=== PATIENT | female | born 1970 | race American Indian/Alaskan Native ===

== ENCOUNTER 2016-06-06 19:50 | Emergency (ER) | payer SELFPAY ==
--- NOTE | 2016-06-06 20:16 | Emergency Department Report ---
Chief Complaint: High BP Stated Complaint: HBP/DIZZINESS Time Seen by Provider: 06/06/16 20:11 - HPI History of Present Illness: PT states 2 years ago she was told that her bp was high at . PT states she was given RX of a water pill for one month. PT states today she checked her bp at 1600 because she was nauseated and having headache. no improvement after Tylenol. PT states she is going to a diet clinic and she is taking RX diet pills. - ROS Review of Systems: -sob -cp + dizziness - Exam Vital Signs: Vital Signs 06/06/16 20:03 Temperature 98.1 F Pulse Rate 75 Respiratory 20 Rate Blood Pressure 212/112 [Right] O2 Sat by Pulse 100 Oximetry Physical Exam: PT looks well, non toxic gcs 15, steady gait rrr, lungs cta MSE screening note: Focused history and physical exam performed. Due to findings the following was ordered: labs, ekg, ct ED Disposition for MSE Condition: Stable
[2016-06-06 21:16] LABS: Basophils % (Auto) 1.3 % (0.0-1.8); Eosinophils % (Auto) 2.3 % (0.0-4.3); Hematocrit 38.6 % (30.3-42.9); Hemoglobin 12.7 gm/dl (10.1-14.3); Mean Corpuscular HGB Conc 33 % (30-34); Mean Corpuscular Hemoglobin 28 pg (28-32); Mean Corpuscular Volume 86 fl (79-97); Platelet Count 215 K/mm3 (140-440); Red Blood Count 4.49 M/mm3 (3.65-5.03); Red Cell Distribution Width 14.7 % (13.2-15.2); White Blood Count 6.8 K/mm3 (4.5-11.0)
[2016-06-06 21:26] LABS: INR 0.96 (0.87-1.13); Partial Thromboplastin Time 27.7 Sec. (24.2-36.6)
[2016-06-06 21:35] LABS: Anion Gap 17 mmol/L; Blood Urea Nitrogen 14 mg/dL (7-17); Calcium 8.7 mg/dL (8.4-10.2); Carbon Dioxide 24 mmol/L (22-30); Chloride 97.5 mmol/L (98-107); Glucose 87 mg/dL (65-100); Potassium 3.7 mmol/L (3.6-5.0); Sodium 135 mmol/L (137-145)
--- NOTE | 2016-06-06 22:05 | Cat Scan Report ---
FINAL REPORT PROCEDURE: CT HEAD/BRAIN WO CON TECHNIQUE: Computerized tomography of the head was performed without contrast material. HISTORY: neuro deficits \T\lt; 6hrs or sx present upon awakening COMPARISON: No prior studies are available for comparison. FINDINGS: Skull and scalp: Normal. Paranasal sinuses: Normal. Ventricles and subarachnoid spaces: Normal. Cerebrum: No evidence of hemorrhage, acute infarction or mass . Cerebellum and brainstem: No evidence of hemorrhage, acute infarction or mass. Vasculature: Normal. Comments: None. IMPRESSION: No acute intracranial abnormality
[2016-06-06] MEDS ORDERED: APRESOLINE IV ONE (23:51)
[2016-06-06] MEDS ORDERED: NORMODYNE IV ONE (23:51)
[2016-06-07] MEDS ORDERED: NACL 0.9% 500 ML 500 ML IV ONE (02:00)
[2016-06-07] MEDS ORDERED: REGLAN IV ONE (02:01)
[2016-06-07] MEDS ORDERED: BENADRYL IV ONE (02:01)
[2016-06-07] MEDS ORDERED: TORADOL IV ONE (02:01)
--- NOTE | 2016-06-07 02:03 | Emergency Department Report ---
HPI - General Chief Complaint: High BP Time Seen by Provider: 06/06/16 20:11 - HPI HPI: The patient is a 46-year-old female presents for evaluation of headache. The patient reports headache since 8 AM earlier today, greater than 12 hours prior to my evaluation. She states that her headache has been constant since onset, 10/10 in severity, throbbing in quality, exacerbated with bright lights or movement of the head, and associated with moderate in severity lightheadedness, also elicited with head position changes or physical activity. The patient denies fever, head injury, neck pain, neck stiffness, vision or hearing changes , smell or taste changes, paresthesias, facial drooping, slurred speech, seizure -like activity, urine or bowel incontinence or retention, or other focal neurological deficit. ED Past Medical Hx - Past Medical History Previous Medical History?: No - Surgical History Past Surgical History?: No - Social History Smoking Status: Current Every Day Smoker Substance Use Type: None - Medications Home Medications: Home Medications Medication Instructions Recorded Confirmed Last Taken Type Ondansetron [Zofran TAB] 4 mg PO Q8HR PRN #15 tablet 06/07/16 Unknown Rx amLODIPine [Norvasc] 5 mg PO DAILY #31 tab 06/07/16 Unknown Rx traMADol [Ultram 50 MG tab] 50 mg PO Q6HR PRN #12 tablet 06/07/16 Unknown Rx ED Review of Systems ROS: Stated complaint: HBP/DIZZINESS Other details as noted in HPI Constitutional: denies: fever; reports lightheadedness ENT: denies: throat or neck pain Respiratory: denies: cough, shortness of breath Cardiovascular: denies: chest pain Endocrine: denies unexplained weight loss or gain Gastrointestinal: denies: abdominal pain reports nausea Genitourinary: denies: dysuria Musculoskeletal: denies: leg swelling Skin: denies: rash Neurological: reports headache Hematological/Lymphatic: denies: easy bleeding or easy bruising Psych: denies sadness or hopelessness Physical Exam - Physical Exam Vital Signs: Vital Signs 06/06/16 06/07/16 06/07/16 20:03 00:31 00:36 Temperature 98.1 F Pulse Rate 75 64 67 Respiratory 20 16 16 Rate Blood Pressure 167/85 Blood Pressure 212/112 [Right] O2 Sat by Pulse 100 98 Oximetry 06/07/16 06/07/16 00:40 00:48 Temperature Pulse Rate 64 Respiratory 16 Rate Blood Pressure 167/85 167/85 Blood Pressure [Right] O2 Sat by Pulse 97 Oximetry Physical Exam: General: well-nourished, well-developed, no acute distress Head: Normocephalic, atraumatic Eyes: normal sclera, EOMI, PERRL, no nystagmus ENT: Mucous membranes are pale and dry Neck: No neck stiffness, no cervical adenopathy Respiratory: Breath sounds equal bilaterally, no wheezing, rales, or rhonchi Cardio: S1 and S2 present, no murmurs, rubs, gallops, capillary refill is delayed Abdomen: Normoactive bowel sounds, soft abdomen, no tenderness Musc: No pitting edema Skin: No rash Neuro: Alert oriented 3, normal cognition, no facial drooping, normal speech, CN 2 through 12 grossly intact, no gross sensation or motor deficits in arms or legs, reflexes 2+ symmetric on DTR testing, Babinski upgoing, no obvious gross neuro deficits on exam Psych: Normal affect ED Course Vital Signs 06/06/16 06/07/16 06/07/16 20:03 00:31 00:36 Temperature 98.1 F Pulse Rate 75 64 67 Respiratory 20 16 16 Rate Blood Pressure 167/85 Blood Pressure 212/112 [Right] O2 Sat by Pulse 100 98 Oximetry 06/07/16 06/07/16 00:40 00:48 Temperature Pulse Rate 64 Respiratory 16 Rate Blood Pressure 167/85 167/85 Blood Pressure [Right] O2 Sat by Pulse 97 Oximetry ED Medical Decision Making - Lab Data Result diagrams: 06/06/16 21:03 06/06/16 21:03 - Medical Decision Making The patient was seen and examined by myself. The patient is placed on a pvc monitor and continuous pulse ox. On initial evaluation, the patient was found to be in no distress. IV access is established and the patient is given normal saline fluid bolus for treatment of dehydration, IV Reglan, Benadryl, and IV Toradol for headache. Lab results are unremarkable, including negative test. The patient was reevaluated and reported that their symptoms were markedly improved. The patient is stable for discharge with outpatient follow-up. The patient is given follow-up and return instructions. The patient expressed understanding and agreed with the plan. The patient is discharged in stable condition. Critical care attestation.: If time is entered above; I have spent that time in minutes in the direct care of this critically ill patient, excluding procedure time. ED Disposition Clinical Impression: Hypertensive urgency, Dehydration, Orthostatic lightheadedness Acute nonintractable headache Qualifiers: Headache type: unspecified Qualified Code(s): R51 - Headache Disposition: DISCHARGED TO HOME OR SELFCARE Is pt being admited?: No Does the pt Need Aspirin: No Condition: Stable Instructions: Migraine Headache (ED), Acute Headache (ED), Hypertension (ED) Prescriptions: amLODIPine [Norvasc] 5 mg PO DAILY #31 tab Ondansetron [Zofran TAB] 4 mg PO Q8HR PRN #15 tablet PRN Reason: Nausea traMADol [Ultram 50 MG tab] 50 mg PO Q6HR PRN #12 tablet PRN Reason: Pain Referrals: PRIMARY CARE, [Primary Care Provider] - 3-5 Days Time of Disposition: 02:03
[2016-06-07 03:14] VITALS: BP 139/74
== END 2016-06-07 03:15 | disposition home or self-care (01) ==
LOC: ED 19:50
DX: I10 Essential (primary) hypertension (principal); E86.0 Dehydration; R42 Dizziness and giddiness; F17.200 Nicotine dependence, unspecified, uncomplicated
CPT/HCPCS: 36415; 70450; 80048; 82962; 84484; 84703; 85025; 85610; 85670; 85730; 93005; 93010; 96361; 96374; 96375; 99285; J1200; J1885; J2765; J7040

== ENCOUNTER 2016-06-09 09:32 | Emergency (ER) | payer SELFPAY ==
[2016-06-09] MEDS ORDERED: ULTRAM PO ONE (13:29)
--- NOTE | 2016-06-09 13:44 | XRay Report ---
ROUTINE CHEST, TWO VIEWS: HISTORY: chest pain. The trachea, heart, mediastinal contour, lung landon and bony thorax are unremarkable. IMPRESSION: Unremarkable chest x-ray.
[2016-06-09 13:54] LABS: Bilirubin,Urine NEG (Negative); Blood,Urine NEG (Negative); Ketones,Urine NEG (Negative); Leukocyte Esterase,Urine NEG (Negative); Mucus,Urine FEW /HPF; Nitrite,Urine NEG (Negative); Protein,Urine <15 mg/dL mg/dL (Negative)
[2016-06-09 14:18] LABS: Basophils % (Auto) 0.7 % (0.0-1.8); Eosinophils % (Auto) 2.8 % (0.0-4.3); Hematocrit 39.1 % (30.3-42.9); Mean Corpuscular HGB Conc 33 % (30-34); Mean Corpuscular Hemoglobin 28 pg (28-32); Mean Corpuscular Volume 86 fl (79-97); Platelet Count 244 K/mm3 (140-440); Red Blood Count 4.56 M/mm3 (3.65-5.03); Red Cell Distribution Width 14.8 % (13.2-15.2)
[2016-06-09 16:00] LABS: Creatine Kinase MB 1.3 ng/mL (0.0-4.0)
[2016-06-09 16:02] LABS: Anion Gap 18 mmol/L; Blood Urea Nitrogen 13 mg/dL (7-17); Calcium 9.5 mg/dL (8.4-10.2); Carbon Dioxide 26 mmol/L (22-30); Chloride 95.9 mmol/L (98-107); Creatine Kinase 77 units/L (30-135); Glucose 108 mg/dL (65-100); Potassium 3.6 mmol/L (3.6-5.0); Sodium 136 mmol/L (137-145)
--- NOTE | 2016-06-09 16:19 | Emergency Department Report ---
Upper Extremity - HPI Chief Complaint: Back Pain/Injury Stated Complaint: PAIN AND NUMBNESS ARM NECK AND BACK Time Seen by Provider: 06/09/16 13:20 Upper Extremity: Left Shoulder Occurred When: >5 Days Severity: moderate Symptoms: Yes Pain with Movement, No Deformity, No Limited Range of Movement, No Numbness, No Weakness, No Swelling, No Bruising/Ecchymosis, No Laceration or Abrasion Other History: 46-year-old female past medical history antiphospholipid syndrome , migraines, hypertension presents with complaint of left-sided shoulder pain radiating down from neck. Complaint of minor tingling in arms associated with episodes of pain worse when she moves her left shoulder. Denies any fever or chills no direct trauma. Denies any current headache no nausea no vomiting no photophobia and no phonophobia. No neck rigidity. States that she has been experiencing this pain for years. Pain is worse when she shrugs her shoulder. Patient does not currently have a primary medical doctor. States she was in the ED 4 days ago for migraine headache which has since resolved but today she was at work and lifted a box and felt pain in her left shoulder. ED Review of Systems ROS: Stated complaint: PAIN AND NUMBNESS ARM NECK AND BACK Other details as noted in HPI Constitutional: denies: chills, fever Eyes: denies: eye pain, eye discharge, vision change ENT: denies: ear pain, throat pain Respiratory: denies: cough, shortness of breath, wheezing Cardiovascular: denies: chest pain, palpitations Endocrine: no symptoms reported Gastrointestinal: denies: abdominal pain, nausea, diarrhea Genitourinary: denies: urgency, dysuria, discharge Musculoskeletal: other (left shoulder pain). denies: back pain, joint swelling , arthralgia Skin: denies: rash, lesions Neurological: headache. denies: weakness, paresthesias Psychiatric: denies: anxiety, depression Hematological/Lymphatic: denies: easy bleeding, easy bruising ED Past Medical Hx - Past Medical History Hx Hypertension: Yes Additional medical history: ANTIPHOSPHO LIPID SYNDROME - Surgical History Additional Surgical History: D & C - Social History Smoking Status: Current Some Day Smoker Substance Use Type: None - Medications Home Medications: Home Medications Medication Instructions Recorded Confirmed Last Taken Type Ondansetron [Zofran TAB] 4 mg PO Q8HR PRN #15 tablet 06/07/16 Unknown Rx amLODIPine [Norvasc] 5 mg PO DAILY #31 tab 06/07/16 Unknown Rx traMADol [Ultram 50 MG tab] 50 mg PO Q6HR PRN #12 tablet 06/07/16 Unknown Rx Lisinopril [Zestril TAB] 10 mg PO QDAY #14 tablet 06/09/16 Unknown Rx traMADol [Ultram 50 MG tab] 50 mg PO Q6HR PRN #8 tablet 06/09/16 Unknown Rx Upper Extremity Exam - Exam General: Vital signs noted. No distress. Alert and acting appropriately. General: Well appearing, well nourished, in no distress. Oriented x 3, normal mood and affect . Ambulating without difficulty. Head: Normocephalic, atraumatic, no visible or palpable masses, depressions, or scaring. Eyes: Visual acuity intact, conjunctiva clear, sclera non-icteric, EOM intact, PERRLA Heart: No cardiomegaly or thrills; regular rate and rhythm, no murmur or gallop Lungs: Clear to auscultation b/l Abdomen: Bowel sounds normal, no tenderness, organomegaly, masses, or hernia Back: Spine normal without deformity or tenderness, no CVA tenderness Musculoskeletal: Normal gait and station. Reproducible pain along left trapezius with deep palpation and with extension of neck. Strenght 5/5 b.l UE and LE, DTR intact Neurologic: CN 2-12 normal. Sensation to pain, touch, and proprioception normal. DTRs normalin upper and lower extremities. No pathologic reflexes. Head and Torso: No HEENT Abnormality, No Neck Tenderness, No Chest/Lungs Abnormality, No Abdominal Tenderness, No Back Tenderness Shoulder Exam: Yes Normal Range of Motion in Shoulder (pain with shoulder external rotation and internal rotation), No Shoulder Tenderness, No Clavicle Tenderness, No Shoulder Deformity, No AC Joint Tenderness Arm Exam: No Arm/Humerus Tenderness, No Arm Deformity Elbow: No Elbow Tenderness, No Normal Range of Motion in Elbow, No Elbow Deformity Forearm: No Forearm Tenderness, No Forearm Deformity, No Pain with Pronation, No Pain with Supination Wrist: Yes Normal ROM in Wrist, No Wrist Tenderness, No Wrist Deformity, No Snuffbox Tenderness, No Pain with Axial Thumb Compression Hand: Yes Normal ROM in Digit(s), No Hand Tenderness, No Hand Deformity, No Digit Tenderness, No Digit(s) Deformity, No Tendon Dysfunction CMS Exam: No Broken Skin, No Normal Distal Pulses, No Normal Capillary Refill, No Normal Distal Sensation ED Course Vital Signs 06/09/16 10:55 Temperature 98.6 F Pulse Rate 67 Respiratory 17 Rate Blood Pressure 141/95 O2 Sat by Pulse 96 Oximetry ED Medical Decision Making - Lab Data Result diagrams: 06/09/16 14:08 06/09/16 14:08 - Medical Decision Making A/P: Possible left shoulder impingement syndrome, cervical radiculopathy left shoulder/ UE 1-as patient is a 46-year-old female with a history of hypertension we performed EKG chest x-ray and troponin. All labs within normal limits EKG within normal limits chest x-ray within normal limits. HEART Risk Score 2 points Low Score (0-3 points) Risk of MACE of 0.9-1.7%. 2-patient has low risk for cardiac related adverse event as per risk stratification. I only considered this because of patient's risk factors with pain in left shoulder. Origin of pain is far more likely to be musculoskeletal in nature given its reproducibility with movement and radiation from neck down through shoulder 3-I will refer patient's primary care, orthopedics in cardiology 4-patient requesting refill on lisinopril which she has used chronically for her blood pressure. Will prescribe a short course and refer to primary care 5-I advised patient that if she experiences any left-sided shoulder or arm pain with associated diaphoresis shortness of breath chest pain or palpitations or generalized weakness to return to the ED immediately. Critical care attestation.: If time is entered above; I have spent that time in minutes in the direct care of this critically ill patient, excluding procedure time. ED Disposition Clinical Impression: Shoulder pain, left Qualifiers: Chronicity: acute Qualified Code(s): M25.512 - Pain in left shoulder Disposition: DISCHARGED TO HOME OR SELFCARE Is pt being admited?: No Does the pt Need Aspirin: No Condition: Stable Instructions: Cervical Radiculopathy (ED), Arthralgia (ED) Prescriptions: Lisinopril [Zestril TAB] 10 mg PO QDAY #14 tablet traMADol [Ultram 50 MG tab] 50 mg PO Q6HR PRN #8 tablet PRN Reason: Pain Referrals: CARO BOWEN MD [Staff Physician] - 3-5 Days [facility] [Outside] - 3-5 Days [facility] [Provider Group] - 3-5 Days [facility] [Provider Group] - 3-5 Days ALISON RANDOLPH MD [Staff Physician] - 3-5 Days Forms: Accompanied Note, Work/School Release Form(ED) Time of Disposition: 16:20
[2016-06-09 16:47] VITALS: BP 140/90
== END 2016-06-09 16:45 | disposition home or self-care (01) ==
LOC: ED 09:32
DX: M25.512 Pain in left shoulder (principal); I10 Essential (primary) hypertension; F17.200 Nicotine dependence, unspecified, uncomplicated
CPT/HCPCS: 36415; 71020; 80048; 81001; 81025; 82550; 82553; 84484; 85025; 93005; 93010; 99284